=== PATIENT | female | born 1940 | race African-American/Black ===

== ENCOUNTER 2019-10-14 04:35 | Inpatient (IN) | payer OTHER ==
[2019-10-14] VITALS (9 sets, daily range): BP systolic 147–171; BP diastolic 60–90
[~2019-10-14] VITALS: Ht 165.1 cm; Wt 75.5 kg
[2019-10-14] MEDS ORDERED: MAGNESIUM 2 G PREMIX 50 ML IV STA (04:49)
[2019-10-14] MEDS ORDERED: METHYLPREDNISOLONE SOD SUCC 125 MG/2 ML VIAL IV STA (04:49)
[2019-10-14] MEDS ORDERED: ALBUTEROL (0.083%) 2.5MG/3ML NEB HHN STA (04:49)
[2019-10-14] MEDS ORDERED: IPRATROPIUM BROMIDE (0.02%) 0.5MG/2.5ML NEB HHN STA (04:49)
[2019-10-14] MEDS ORDERED: EPINEPHRINE 1:1000 1 MG/ML AMP INJ ONE (05:00)
[2019-10-14] MEDS ORDERED: KETAMINE HCL 50 MG/ML 10ML IV ONE (05:00)
[2019-10-14 05:26] LABS: HEMATOCRIT 43.1 % (36.0-48.0); MEAN CORPUSCULAR HEMOGLOBIN 29.4 pg (28.0-32.0); MEAN CORPUSCULAR VOLUME 90.5 fL (81.0-99.0); PLATELET 186 x1000/uL (130-400); RED BLOOD CELL COUNT 4.76 mill/uL (4.2-5.4); RED CELL DISTRIBUTION WIDTH 16.3 % (11.6-14.6)
[2019-10-14 05:48] LABS: CHLORIDE 111 mEq/L (98-107)
[2019-10-14] MEDS ORDERED: GLIP10TA10 PO (10:55)
[2019-10-14] MEDS ORDERED: KDUR10 PO (10:55)
[2019-10-14] MEDS ORDERED: FURO20TA4 PO (10:55)
[2019-10-14] MEDS ORDERED: CHOL200077 PO (10:55)
[2019-10-14] MEDS ORDERED: HYDR-4134 PO (10:55)
[2019-10-14] MEDS ORDERED: GABA-529 PO (10:55)
[2019-10-14] MEDS ORDERED: LOSA100T32 PO (10:55)
[2019-10-14] MEDS ORDERED: HYDR-3280 PO (10:55)
[2019-10-14] MEDS ORDERED: METF-414 PO (10:55)
[2019-10-14] MEDS ORDERED: TIOT4MIS3 IH (10:57)
[2019-10-14] MEDS ORDERED: ALBU6.7H9 INH (10:57)
[2019-10-14] MEDS ORDERED: DEXTROSE 50% WATER 50ML SYRINGE IV PRN (11:15)
[2019-10-14] MEDS: BLOOD SUGAR DIAGNOSTIC STRIP TEST SCH ×3 (11:50→21:00)
[2019-10-14] MEDS: IPRATROPIUM/ALBUTEROL 0.5-3(2.5)MG/3ML NEB HHN SCH ×3 (12:27→21:06)
[2019-10-14] MEDS: GABAPENTIN 100MG CAPSULE PO SCH ×2 (13:00→17:11)
[2019-10-14] MEDS: LOSARTAN POTASSIUM 100 MG TABLET PO SCH (13:00)
[2019-10-14] MEDS ORDERED: LEVOFLOXACIN 500MG PREMIX 100 ML IV SCH (13:00)
[2019-10-14] MEDS: PREDNISONE 20MG TABLET PO SCH (13:00)
[2019-10-14] MEDS: ENOXAPARIN 40MG/0.4ML SYR SUBCUT SCH (13:01)
[2019-10-14] MEDS: INSULIN LISPRO 100 UNITS/ML SUBCUT SCH ×3 (13:04→22:23)
[2019-10-14] MEDS: GLIPIZIDE 10MG TABLET PO SCH (17:19)
[2019-10-14] MEDS ORDERED: ACETAMINOPHEN 325MG TABLET PO PRN (21:45)
[2019-10-14] MEDS: HYDRALAZINE HCL 25MG TABLET PO SCH (22:20)
[2019-10-14] MEDS: TRAMADOL 50MG TABLET PO PRN (22:20)
[2019-10-15] VITALS (9 sets, daily range): BP systolic 133–159; BP diastolic 77–92
[2019-10-15] MEDS: TRAMADOL 50MG TABLET PO PRN ×3 (00:26→06:10)
[2019-10-15] MEDS ORDERED: CLONIDINE 0.1MG TABLET PO PRN (00:45)
[2019-10-15] MEDS: IPRATROPIUM/ALBUTEROL 0.5-3(2.5)MG/3ML NEB HHN SCH ×4 (01:09→13:30)
[2019-10-15] MEDS: BLOOD SUGAR DIAGNOSTIC STRIP TEST SCH ×2 (05:54→11:35)
[2019-10-15] MEDS: INSULIN LISPRO 100 UNITS/ML SUBCUT SCH ×2 (05:58→12:10)
[2019-10-15] MEDS: GLIPIZIDE 10MG TABLET PO SCH (06:10)
[2019-10-15] MEDS: LOSARTAN POTASSIUM 100 MG TABLET PO SCH (07:47)
[2019-10-15] MEDS: PREDNISONE 20MG TABLET PO SCH (07:48)
[2019-10-15] MEDS: GABAPENTIN 100MG CAPSULE PO SCH ×2 (07:48→12:09)
[2019-10-15] MEDS: HYDRALAZINE HCL 25MG TABLET PO SCH (07:48)
[2019-10-15] MEDS: ENOXAPARIN 40MG/0.4ML SYR SUBCUT SCH (07:49)
[2019-10-15] MEDS ORDERED: LEVOFLOXACIN 250MG PREMIX 50 ML IV SCH (13:00)
[2019-10-15] MEDS ORDERED: IPRA3AMP9 NEB (14:16)
[2019-10-15] MEDS ORDERED: P20 PO (14:16)
[2019-10-15] MEDS ORDERED: METF-414 PO (14:16)
[2019-10-15] MEDS ORDERED: FUROSEMIDE 40MG/4ML VIAL IVP SCH (15:00)
[2019-10-16] MEDS ORDERED: LEVOFLOXACIN 250MG TABLET PO SCH (11:00)
== END 2019-10-15 16:33 | disposition home or self-care (01) | DRG 190 ==
LOC: ER 04:53 → 3WST 05:56 → ENRESERV 07:38
PROVIDERS: ADMIT Ophthalmology; ATTEND Ophthalmology
PROC: 5A09357 Assistance with Respiratory Ventilation, Less than 24 Consecutive Hours, Continuous Positive Airway Pressure (ICD-10-PCS; principal; 2019-10-14)
DX: J44.1 Chronic obstructive pulmonary disease with (acute) exacerbation (principal); J96.90 Respiratory failure, unspecified, unspecified whether with hypoxia or hypercapnia; E87.2 Acidosis; I11.9 Hypertensive heart disease without heart failure; E11.9 Type 2 diabetes mellitus without complications; M19.90 Unspecified osteoarthritis, unspecified site; Z83.3 Family history of diabetes mellitus; Z20.828 Contact with and (suspected) exposure to other viral communicable diseases
CPT/HCPCS: 36415; 71045; 80053; 82962; 83605; 84145; 85027; 93970; 94640; 94644; 94660; 97161; 99291; J1650; J1815; J1940; J1956; J2930; J3475; J3490; J7512

== ENCOUNTER 2020-03-31 05:18 | Emergency (ER) | payer OTHER ==
[~2020-03-31] VITALS: Ht 162.6 cm; Wt 82.0 kg
[~2020-03-31 05:18] MED LIST: ALBU6.7H9 INH; CHOL200077 PO; FURO20TA4 PO; GABA-529 PO; GLIP10TA10 PO; HYDR-3280 PO; HYDR-4134 PO; IPRA3AMP9 NEB; KDUR10 PO; LOSA100T32 PO; METF-414 PO; P20 PO; TIOT4MIS3 IH
[2020-03-31] MEDS ORDERED: ALBUTEROL (0.083%) 2.5MG/3ML NEB HHN STA (05:27)
[2020-03-31 06:17] LABS: BASOPHILS % 0.6 % (0.0-2.0); EOSINOPHILS % 1.3 % (0.0-5.0); HEMATOCRIT. 39.5 % (36.0-48.0); HEMOGLOBIN. 12.8 g/dL (12.0-16.0); LYMPHOCYTES % 27.4 % (20.0-50.0); MEAN CORPUSCULAR HEMOGLOBIN 29.5 pg (28.0-32.0); MEAN CORPUSCULAR VOLUME 90.9 fL (81.0-99.0); MEAN PLATELET VOLUME 10.5 fl (7.4-10.4); MONOCYTES % 5.3 % (2.0-8.0); NEUTROPHILS % 65.4 % (40.0-76.0); PLATELET 170 x1000/uL (130-400); RED BLOOD CELL COUNT 4.34 mill/uL (4.2-5.4); RED CELL DISTRIBUTION WIDTH 15.4 % (11.6-14.6)
[2020-03-31 06:25] LABS: CHLORIDE 109 mEq/L (98-107)
[2020-03-31 08:31] VITALS: BP 185/84
== END 2020-03-31 08:59 | disposition home or self-care (01) ==
LOC: ER 05:18 → CANBEDREQ 12:34
DX: J44.1 Chronic obstructive pulmonary disease with (acute) exacerbation (principal); I11.0 Hypertensive heart disease with heart failure; I50.9 Heart failure, unspecified; E11.9 Type 2 diabetes mellitus without complications; J45.909 Unspecified asthma, uncomplicated; Z79.899 Other long term (current) drug therapy
CPT/HCPCS: 36415; 71045; 80053; 83880; 84484; 85025; 93005; 94640; 99285